=== PATIENT | female | born 1950 | race Caucasian/White ===

== ENCOUNTER 2019-01-18 09:08 | Day surgery (SDC) | payer OTHER ==
[~2019-01-18 09:08] MED LIST: COZAAR50 MG PO; FENTANYL PO; GILOTRIF40 MG PO; LIPITOR20 MG PO; LYRICA PO; PROTONIX PO; VIT D 3 PO
== END 2019-01-18 17:30 | disposition home or self-care (01) ==
LOC: CIR.AMB 09:08
DX: N20.1 Calculus of ureter (principal)